=== PATIENT | female | born 1955 | race Caucasian/White ===

== ENCOUNTER 2018-03-15 21:14 | Emergency (ER) | payer BC ==
[~2018-03-15] VITALS: Ht 175.3 cm; Wt 96.6 kg
[~2018-03-15 21:14] MED LIST: AMLO1CAP4; CALC-740; LABE200T28 PO; [UNRECOGNIZED DRUG - REMARK]
[2018-03-15] MEDS ORDERED: NACL 0.9% 1,000 ML IV ONE (21:24)
[2018-03-15 21:30] VITALS: BP_SYST 163
[2018-03-15] MEDS ORDERED: KETOROLAC TROMETHAMINE 30 MG VIAL IVP ONE (21:30)
[2018-03-15 21:52] LABS: BASOPHILS # (AUTO) 0.1 K/uL (0.0-0.2); BASOPHILS % (AUTO) 1.1 % (0.0-2.0); EOSINOPHILS # (AUTO) 0.2 K/uL (0.0-0.4); EOSINOPHILS % (AUTO) 3.1 % (0.0-4.0); HEMATOCRIT 42.3 % (36-48); HEMOGLOBIN 14.3 g/dL (12.0-16.0); LYMPHOCYTES # (AUTO) 1.9 K/uL (1.0-5.5); LYMPHOCYTES % (AUTO) 30.4 % (20.5-51.5); MEAN CORPUSCULAR HEMOGLOBIN 31 pg (27-31); MEAN CORPUSCULAR HGB CONC 34 % (32-36); MEAN CORPUSCULAR VOLUME 91 fL (79.0-98.0); MONOCYTES # (AUTO) 0.5 K/uL (0.0-1.0); NEUTROPHILS # (AUTO) 3.4 K/uL (1.8-7.7); NEUTROPHILS % (AUTO) 57.4 % (40.0-70.0); PLATELET COUNT (AUTO) 239 K/uL (130-430); RED BLOOD CELL COUNT(AUTO) 4.68 MIL/uL (4.2-6.2); RED CELL DISTRIBUTION WIDTH 12.1 % (9.0-15.0); WHITE BLOOD COUNT (AUTO) 6.1 K/uL (4.8-10.8)
[2018-03-15 21:54] LABS: BILIRUBIN,URINE NEGATIVE (NEGATIVE); BLOOD, URINE 3+ (NEGATIVE); CLARITY/URINE CLEAR (CLEAR); COLOR,URINE YELLOW (YELLOW); GLUCOSE,URINE NEGATIVE (NEGATIVE); KETONES,URINE NEGATIVE (NEGATIVE); LEUKOCYTE ESTERASE ,URINE TRACE (NEGATIVE); NITRITE, URINE NEGATIVE (NEGATIVE); PROTEIN URINE TRACE (NEGATIVE); UROBILINOGEN,URINE 0.2 (0.2-1.0)
[2018-03-15 21:57] LABS: BACTERIA,URINE MODERATE /HPF (None Seen); RBC,URINE >100 /HPF (0-3); WBC,URINE 0-3 /HPF (0-3)
[2018-03-15 22:01] LABS: CALCIUM 9.1 mg/dL (8.4-11.0); CREATININE 0.91 mg/dL (0.55-1.30); POTASSIUM 3.6 mmol/L (3.5-5.1)
[2018-03-15 22:06] LABS: ALBUMIN 4.2 g/dL (3.4-4.8); TOTAL BILIRUBIN 0.5 mg/dL (0.0-1.0)
[2018-03-15] MEDS ORDERED: ONDANSETRON HCL 4 MG/2 ML VIAL IVP ONE (22:30)
[2018-03-15 23:21] VITALS: BP_SYST 147
== END 2018-03-15 23:21 | disposition home or self-care (01) ==
LOC: SED 21:14
DX: N20.0 Calculus of kidney (principal); E78.00 Pure hypercholesterolemia, unspecified; I10 Essential (primary) hypertension; Z90.49 Acquired absence of other specified parts of digestive tract; Z88.1 Allergy status to other antibiotic agents; Z88.8 Allergy status to other drugs, medicaments and biological substances; Z79.899 Other long term (current) drug therapy
CPT/HCPCS: 36415; 74176; 80053; 81000; 85025; 87086; 96374; 99285; J1885; J7030; J2405

== ENCOUNTER 2022-01-27 17:36 | Emergency (ER) | payer BC, OTHER ==
[~2022-01-27] VITALS: Ht 170.2 cm; Wt 95.7 kg
[~2022-01-27 17:36] MED LIST changes: -LABE200T28 PO; +LABE200T6 PO
[2022-01-27 18:02] VITALS: BP_SYST 185
[2022-01-27] MEDS ORDERED: cloNIDine HCL 0.1 MG TABLET PO ONE ×2 (19:00→19:30)
[2022-01-27 20:48] VITALS: BP_SYST 138
== END 2022-01-27 20:48 | disposition home or self-care (01) ==
LOC: SED 17:36
DX: I10 Essential (primary) hypertension (principal); Z88.1 Allergy status to other antibiotic agents; Z79.899 Other long term (current) drug therapy
CPT/HCPCS: 99283